=== PATIENT | female | born 1990 | race Caucasian/White ===

== ENCOUNTER 2024-07-17 09:33 | Emergency (ER) | payer BC ==
[2024-07-17 09:57] VITALS: BP 123/79; PULSE 80; RESP 20; TEMP 98.6; BMI 34.9
[2024-07-17 10:45] LABS: CALCIUM 8.5 mg/dl (8.5-10.1); CREATININE 0.4 mg/dl (0.6-1.3); POTASSIUM 4.1 mmol/L (3.5-5.1)
[2024-07-17 11:04] LABS: EPITHELIAL CELLS >50 /hpf
[2024-07-17 11:57] LABS: ABSOLUTE IMMATURE GRANULOCYTES 0.01 x10^3/uL (0.0-0.031); BASOPHILS # 0.02 x10^3/uL (0.01-0.08); EOSINOPHIL % 0.9 % (0.7-5.8); EOSINOPHILS # 0.07 x10^3/uL (0.04-0.36); HEMATOCRIT 38.8 % (34.1-44.9); HEMOGLOBIN 13.2 g/dL (11.2-15.7); MEAN PLT VOLUME 9.5 fl (9.4-12.3); MONOCYTE # 0.49 x10^3/uL (0.24-0.86); PLATELET COUNT 271 x10^3/uL (182-369); RDW 12.3 % (12.1-16.8)
[2024-07-17] MEDS: SODIUM CHLORIDE 1,000 ML IV ONE (12:13)
== END 2024-07-17 14:02 | disposition home or self-care (01) ==
LOC: FER 09:33
PROC: 3E0337Z Introduction of Electrolytic and Water Balance Substance into Peripheral Vein, Percutaneous Approach (ICD-10-PCS; principal; 2024-07-17)
DX: O20.9 Hemorrhage in early pregnancy, unspecified (principal); O26.892 Other specified pregnancy related conditions, second trimester; R10.9 Unspecified abdominal pain; Z3A.14 14 weeks gestation of pregnancy
CPT/HCPCS: 36415; 76815-TC; 80048; 81003; 81015; 84702; 84703; 85025; 86850; 86900; 86901; 87086; 99284-25